=== PATIENT | female | born 1935 ===

== ENCOUNTER 2021-06-24 05:14 | Inpatient (IN) | payer OTHER, MEDICARE ==
[2021-06-24] MEDS ORDERED: Ondansetron PF 4 MG/2 ML Vial IVP PRN (10:20)
[2021-06-24] MEDS ORDERED: Dextrose 5% in Water 1,000 ML IV PRN (10:20)
[2021-06-24] MEDS ORDERED: hydrALAZINE 20 MG/ML VIAL SLOW IVP PRN (10:20)
[2021-06-24] MEDS ORDERED: Dextrose 50% Abboject 50 ML SYRINGE SLOW IVP PRN (10:20)
[2021-06-24] MEDS ORDERED: Ondansetron ODT 4 MG TAB PO PRN (10:20)
[2021-06-24] MEDS ORDERED: Cyclobenzaprine 10 MG TAB PO PRN (10:24)
[2021-06-24] MEDS ORDERED: traMADol HCl 50 MG TAB PO PRN ×2 (10:24)
[2021-06-24] MEDS ORDERED: Sodium Chloride 0.9% 1,000 ML IV SCH (10:30)
[2021-06-24 11:10] LABS: #Eosinphils 0.1 thou/uL (0.0-0.7); #Lymphocytes 1.3 thou/uL (1.20-3.40); #Monocytes 0.7 thou/uL (0.11-0.59); #Neutrophils 4.3 thou/uL (1.40-6.50); %Basophils 0.5 % (0.0-1.0); %Eosinophils 1.6 % (0.0-10.0); %Lymphocytes 20.1 % (21.0-51.0); %Monocytes 11.2 % (0.0-10.0); %Neutrophils 66.6 % (42.0-75.0); Mean Corpuscular HGB CONC 34.2 g/dL (32.0-36.0); Mean Corpuscular Hemoglobin 31.6 pg (27.0-31.0); Mean Corpuscular Volume 92.2 fL (78.0-98.0); Mean Platelet Volume 7.6 fL (7.4-10.4); Platelet Count 147 thou/uL (130-400); RBC Distribution Width 12.5 % (11.5-14.5); Red Blood Cell (RBC) Count 3.48 mill/uL (4.20-5.40); White Blood Cell (WBC) Count 6.5 thou/uL (4.8-10.8)
[2021-06-24 11:25] LABS: Anion Gap 10 mmol/L (10-20); BUN (Urea Nitrogen) 18 mg/dL (9.8-20.1); Calc. Creatinine Clearance 0 mL/min (70-130); Calcium 9.4 mg/dL (7.8-10.44); Carbon Dioxide 25 mmol/L (23-31); Chloride 111 mmol/L (98-107); Glucose 90 mg/dL (83-110); Magnesium 1.8 mg/dL (1.6-2.6); Phosphorus 2.6 mg/dL (2.3-4.7); Sodium 142 mmol/L (136-145)
[2021-06-24] MEDS ORDERED: Clindamycin/D5W 900 mg/50 ml Premix Bag ONE (13:27)
[2021-06-24] MEDS ORDERED: Levofloxacin 500 mg/D5W 100 ml Premix Bag ONE (13:27)
[2021-06-24] MEDS ORDERED: Morphine 4 MG/ML VIAL SLOW IVP PRN (13:37)
[2021-06-24 13:42] VITALS: BMI 30.9
[2021-06-24] MEDS ORDERED: Fentanyl 100 MCG/2 ML VIAL ONE (14:17)
[2021-06-24] MEDS ORDERED: HYDROmorphone 2 MG/ML VIAL ONE (14:17)
[2021-06-24] MEDS ORDERED: Ondansetron PF 4 MG/2 ML Vial ONE (14:34)
[2021-06-24] MEDS ORDERED: Dexamethasone 20 MG/5 ML VIAL ONE (14:34)
[2021-06-24] MEDS ORDERED: Glycopyrrolate 0.2 MG/ML 5 ML SYRINGE ONE (14:34)
[2021-06-24] MEDS ORDERED: ePHEDrine 50 MG/ML VIAL ONE (14:34)
[2021-06-24] MEDS ORDERED: Rocuronium Bromide 10 MG/ML (10ML VIAL) ONE (14:34)
[2021-06-24] MEDS ORDERED: PROPOFOL 200 MG/20 ML VIAL ONE (14:34)
[2021-06-24] MEDS ORDERED: PHENYLEPHRINE-NS 100 MCG/ML 10 ML SYRINGE ONE (14:34)
[2021-06-24] MEDS ORDERED: Lidocaine 1% PF 5 ML VIAL ONE (14:34)
[2021-06-24] MEDS ORDERED: ePHEDrine Sulfate 50 MG/10 ML VIAL ONE (15:08)
[2021-06-24] MEDS ORDERED: HYDROmorphone 2 MG/ML VIAL SLOW IVP PRN (15:34)
[2021-06-24] MEDS ORDERED: Promethazine HCl 25 MG/ML VIAL IVPB PRN (15:34)
[2021-06-24] MEDS ORDERED: Promethazine HCl 25 MG/ML VIAL IM PRN (15:34)
[2021-06-24] MEDS ORDERED: Ondansetron HCl/PF 4 MG/2 ML Vial IVP PRN (15:34)
[2021-06-24 16:42] LABS: Prothrombin Time 13.1 sec (12.0-14.7)
[2021-06-24] MEDS: Ibuprofen 800 MG TAB PO SCH ×2 (18:03→21:02)
[2021-06-24] MEDS: Acetaminophen 500 MG TAB PO SCH ×2 (18:19→23:32)
[2021-06-24] MEDS: Senokot S 8.6-50 MG TAB PO SCH (20:02)
[2021-06-24] MEDS ORDERED: Famotidine 20 MG TAB PO SCH (21:00)
[2021-06-24] MEDS: Clindamycin/D5W 900 MG in Premix Bag 1 BAG IVPB SCH (21:01)
[2021-06-25] MEDS: Acetaminophen 500 MG TAB PO SCH ×4 (05:03→23:22)
[2021-06-25] MEDS: Ibuprofen 800 MG TAB PO SCH (05:04)
[2021-06-25] MEDS: Clindamycin/D5W 900 MG in Premix Bag 1 BAG IVPB SCH (05:05)
[2021-06-25 07:26] LABS: #Basophils 0.1 thou/uL (0.0-0.2); #Lymphocytes 0.7 thou/uL (1.20-3.40); #Monocytes 0.9 thou/uL (0.11-0.59); #Neutrophils 8.4 thou/uL (1.40-6.50); %Basophils 0.9 % (0.0-1.0); %Eosinophils 0.1 % (0.0-10.0); %Lymphocytes 6.9 % (21.0-51.0); %Monocytes 8.9 % (0.0-10.0); %Neutrophils 83.3 % (42.0-75.0); Hemoglobin 9.2 g/dL (12.0-16.0); Mean Corpuscular HGB CONC 33.4 g/dL (32.0-36.0); Mean Corpuscular Hemoglobin 30.6 pg (27.0-31.0); Mean Corpuscular Volume 91.8 fL (78.0-98.0); Mean Platelet Volume 7.8 fL (7.4-10.4); Platelet Count 173 thou/uL (130-400); RBC Distribution Width 12.5 % (11.5-14.5); White Blood Cell (WBC) Count 10.1 thou/uL (4.8-10.8)
[2021-06-25 07:42] LABS: Anion Gap 11 mmol/L (10-20); BUN (Urea Nitrogen) 21 mg/dL (9.8-20.1); Calc. Creatinine Clearance 44 mL/min (70-130); Carbon Dioxide 21 mmol/L (23-31); Chloride 109 mmol/L (98-107); Glucose 119 mg/dL (83-110); Magnesium 1.7 mg/dL (1.6-2.6); Phosphorus 2.5 mg/dL (2.3-4.7); Potassium 4.3 mmol/L (3.5-5.1); Sodium 137 mmol/L (136-145)
[2021-06-25] MEDS ORDERED: Ibuprofen 200 MG TAB PO PRN (07:50)
[2021-06-25] MEDS ORDERED: Sodium Chloride 0.9% 1,000 ML IV SCH (08:00)
[2021-06-25] MEDS ORDERED: Furosemide 40 MG TAB PO SCH (09:00)
[2021-06-25] MEDS: Ascorbic Acid 500 mg Chewable Tablet PO SCH (09:00)
[2021-06-25] MEDS: Gabapentin 300 MG CAP PO SCH ×3 (09:00→20:21)
[2021-06-25] MEDS: Senokot S 8.6-50 MG TAB PO SCH ×2 (09:00→20:22)
[2021-06-25] MEDS: Losartan 25 MG TAB PO SCH (09:01)
[2021-06-25] MEDS: Aspirin 81 mg Enteric Coated Tablet PO SCH ×2 (09:01→20:22)
[2021-06-25] MEDS: Polyethylene Glycol 3350 17 GM Packet PO SCH (09:01)
[2021-06-25] MEDS ORDERED: Melatonin 3 MG TAB PO PRN (19:57)
[2021-06-25] MEDS ORDERED: Famotidine 20 MG TAB PO SCH (21:00)
[2021-06-25] MEDS ORDERED: Melatonin 3 MG TAB PO SCH (21:00)
[2021-06-25] MEDS ORDERED: traZODone HCl 50 MG TAB PO SCH (21:00)
[2021-06-26 06:09] LABS: #Eosinphils 0.1 thou/uL (0.0-0.7); #Lymphocytes 1.3 thou/uL (1.20-3.40); #Monocytes 0.7 thou/uL (0.11-0.59); #Neutrophils 4.9 thou/uL (1.40-6.50); %Basophils 0.3 % (0.0-1.0); %Eosinophils 1.1 % (0.0-10.0); %Lymphocytes 18.9 % (21.0-51.0); %Monocytes 10.1 % (0.0-10.0); %Neutrophils 69.7 % (42.0-75.0); Hemoglobin 8.5 g/dL (12.0-16.0); Mean Corpuscular HGB CONC 33.2 g/dL (32.0-36.0); Mean Corpuscular Hemoglobin 30.8 pg (27.0-31.0); Mean Corpuscular Volume 92.8 fL (78.0-98.0); Platelet Count 141 thou/uL (130-400); RBC Distribution Width 12.8 % (11.5-14.5); Red Blood Cell (RBC) Count 2.75 mill/uL (4.20-5.40); White Blood Cell (WBC) Count 7.1 thou/uL (4.8-10.8)
[2021-06-26 06:31] LABS: Anion Gap 8 mmol/L (10-20); BUN (Urea Nitrogen) 19 mg/dL (9.8-20.1); Calc. Creatinine Clearance 44 mL/min (70-130); Calcium 8.9 mg/dL (7.8-10.44); Carbon Dioxide 26 mmol/L (23-31); Chloride 109 mmol/L (98-107); Glucose 88 mg/dL (83-110); Magnesium 1.9 mg/dL (1.6-2.6); Phosphorus 2.3 mg/dL (2.3-4.7); Potassium 3.8 mmol/L (3.5-5.1); Sodium 139 mmol/L (136-145)
[2021-06-26] MEDS: Acetaminophen 500 MG TAB PO SCH ×2 (06:37→11:47)
[2021-06-26] MEDS ORDERED: Magnesium 2 GM/50 ML 2 GM in Premix Bag 1 BAG IVPB SCH (07:15)
[2021-06-26] MEDS: Ascorbic Acid 500 mg Chewable Tablet PO SCH (09:01)
[2021-06-26] MEDS: Senokot S 8.6-50 MG TAB PO SCH (09:01)
[2021-06-26] MEDS: Aspirin 81 mg Enteric Coated Tablet PO SCH (09:02)
[2021-06-26] MEDS: Losartan 25 MG TAB PO SCH (09:02)
[2021-06-26] MEDS: Polyethylene Glycol 3350 17 GM Packet PO SCH (09:02)
[2021-06-26] MEDS: Gabapentin 300 MG CAP PO SCH ×2 (09:10→14:00)
[2021-06-26 10:12] LABS: Bacteria/HPF None Seen HPF (None Seen); Bilirubin Negative (Negative); Blood, Urine Negative (Negative); Clarity Clear (Clear); Glucose, Urine (Dipstick) Normal (Negative); Ketone, Urine Negative (Negative); Leukocyte Negative Leu/uL (Negative); Nitrite Negative (Negative); Protein, Urine (Dipstick) Negative (Neg-Trace); RBC/HPF 0-3 HPF (0-3); Specific Gravity, Urine 1.007 (1.002-1.036); Squamous Epithelial 0-3 HPF (0-3); Urobilinogen Normal mg/dL (Less than 2); WBC/HPF None Seen HPF (0-3)
[2021-06-26 12:26] VITALS: BP 145/90; TEMP 98.1
== END 2021-06-26 15:37 | DRG 481 ==
LOC: SURG A 08:31
PROVIDERS: ADMIT Surgery; ATTEND Surgery
PROC: 0QS704Z Reposition Left Upper Femur with Internal Fixation Device, Open Approach (ICD-10-PCS; principal; 2021-06-24)
DX: S72.142A Displaced intertrochanteric fracture of left femur, initial encounter for closed fracture (principal); N17.9 Acute kidney failure, unspecified; F03.90 Unspecified dementia, unspecified severity, without behavioral disturbance, psychotic disturbance, mood disturbance, and anxiety; I10 Essential (primary) hypertension; W19.XXXA Unspecified fall, initial encounter; Z88.0 Allergy status to penicillin; Y92.89 Other specified places as the place of occurrence of the external cause
CPT/HCPCS: 36415; 72170; 76000; 80048; 81001; 83735; 84100; 85025; 85610; 85730; 86850; 86900; 86901; C1713; J1100; J1170; J1956; J2270; J2405; J2704; J3010; J3475; J3490; J7050